=== PATIENT | female | born 1965 | race African-American/Black ===

== ENCOUNTER 2017-07-14 21:14 | Observation (INO) | payer OTHER ==
[2017-07-14] MEDS ORDERED: Nitroglycerin 0.4 MG TAB (25 Tab Bottle) ONE (21:17)
[2017-07-14] MEDS ORDERED: Nitroglycerin 2% Ointment 1 INCH/1 GM Packet ONE (21:31)
[2017-07-14 21:37] LABS: #Basophils 0.1 thou/uL (0.0-0.2); #Lymphocytes 3.4 thou/uL (1.20-3.40); #Monocytes 0.4 thou/uL (0.11-0.59); #Neutrophils 4.4 thou/uL (1.40-6.50); %Basophils 0.6 % (0.0-1.0); %Eosinophils 0.6 % (0.0-10.0); %Lymphocytes 40.9 % (21.0-51.0); %Monocytes 4.8 % (0.0-10.0); Hematocrit 40.1 % (36.0-47.0); Mean Platelet Volume 6.5 fL (7.4-10.4); Red Blood Cell (RBC) Count 4.49 mill/uL (4.20-5.40); White Blood Cell (WBC) Count 8.4 thou/uL (4.8-10.8)
--- NOTE | 2017-07-14 21:50 | RAD ---
PORTABLE CHEST: 07/14/17 HISTORY: Chest pain. Heart size is within normal limits. The aorta is mildly tortuous. The lungs are clear. of infiltrate s. IMPRESSION: No active intrathoracic disease. POS: [facility]
[2017-07-14] MEDS ORDERED: Ketorolac Tromethamine 30 MG/ML VIAL ONE (21:53)
[2017-07-14 22:03] LABS: Troponin I Less than 0.010 ng/mL (< 0.028)
[2017-07-14 22:48] LABS: Chloride 105 mmol/L (98-107); Magnesium 1.8 mg/dL (1.6-2.6)
[2017-07-14 22:49] LABS: Calcium 8.9 mg/dL (7.8-10.44)
[2017-07-14 22:50] LABS: Protein, Total 7.4 g/dL (6.0-8.3)
[2017-07-14 22:51] LABS: Anion Gap 12 mmol/L (10-20); Bilirubin, Total 0.3 mg/dL (0.2-1.2); Carbon Dioxide 26 mmol/L (22-29)
[2017-07-14 22:52] LABS: Alkaline Phosphatase 66 U/L (40-150)
[2017-07-14 22:53] LABS: Calc. Creatinine Clearance 0 mL/min (70-130); Estimated GFR-MDRD Greater than 90
[2017-07-14 22:54] LABS: BUN (Urea Nitrogen) 13 mg/dL (7.0-18.7)
[2017-07-14 22:55] LABS: ALT (SGPT) 10 U/L (8-55); AST (SGOT) 16 U/L (5-34); Lipase 12 U/L (8-78)
[2017-07-14 22:56] LABS: CK (CPK) 254 U/L (29-168)
[2017-07-14] MEDS ORDERED: Acetaminophen 325 MG TAB ONE (23:59)
[2017-07-15] MEDS ORDERED: Ondansetron ODT 4 MG TAB PO PRN (00:15)
[2017-07-15] MEDS ORDERED: HYDROcodone/Acetaminophen 5/325 mg Tablet PO PRN (00:15)
[2017-07-15] MEDS ORDERED: Acetaminophen 325 MG TAB PO PRN (00:15)
[2017-07-15] MEDS ORDERED: HYDROcodone/Acetaminophen 10/325 mg Tablet PO PRN (00:15)
[2017-07-15] MEDS ORDERED: Metoprolol Tartrate 25 MG TAB PO SCH (00:30)
[2017-07-15 01:15] LABS: Troponin I Less than 0.010 ng/mL (< 0.028)
[2017-07-15 02:10] VITALS: BMI 38.2
[2017-07-15] MEDS ORDERED: Regadenoson 0.4 MG/5 ML SYRINGE ONE ×2 (03:28→15:11)
[2017-07-15 04:20] LABS: #Basophils 0.1 thou/uL (0.0-0.2); #Eosinphils 0.1 thou/uL (0.0-0.7); #Lymphocytes 3.7 thou/uL (1.20-3.40); #Monocytes 0.5 thou/uL (0.11-0.59); %Basophils 1.2 % (0.0-1.0); %Eosinophils 0.8 % (0.0-10.0); %Lymphocytes 44.5 % (21.0-51.0); %Monocytes 6.1 % (0.0-10.0); Hematocrit 36.4 % (36.0-47.0); Mean Platelet Volume 6.1 fL (7.4-10.4); Red Blood Cell (RBC) Count 4.07 mill/uL (4.20-5.40); White Blood Cell (WBC) Count 8.4 thou/uL (4.8-10.8)
[2017-07-15 04:31] LABS: Anion Gap 11 mmol/L (10-20); BUN (Urea Nitrogen) 12 mg/dL (7.0-18.7); Calc. Creatinine Clearance 133 mL/min (70-130); Calcium 8.8 mg/dL (7.8-10.44); Carbon Dioxide 29 mmol/L (22-29); Chloride 104 mmol/L (98-107); Estimated GFR-MDRD Greater than 90
[2017-07-15] MEDS ORDERED: Nitroglycerin 2% Ointment 1 INCH/1 GM Packet TOP SCH (06:00)
--- NOTE | 2017-07-15 06:41 | HP ---
PRIMARY CARE PHYSICIAN: Dr. Snell. CHIEF COMPLAINT: She is complaining of chest pain. HISTORY OF PRESENT ILLNESS: Ms. 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 The patient was in normal state of health u ntil today around 04:00. She was about to go to work and developed chest pain in the mid sternum ar ea and that later radiated to the left shoulder and into her back. She has been short of breath due to increased pain with deep breathing. She took 325 mg of aspirin. Initial EKG was unremarkable; however, her pain continued and they decided to evaluate here in the emergency department. Workup here has been unremarkable; however, given the past history of hypertension that seems to be not completely accurate, the patient is being placed in observation for workup. No nausea or vomiting, no diarrhea or constipation, no sweats, no diaphoresis or hematuria, dysuria. PAST MEDICAL HISTORY: 1. Attention deficit disorder. 2. History of DVT, she thinks back in 1983. 3. Hypertension: Her primary care doctor ruled it the white coat syndrome and she has not been on medications for over a year. PAST SURGICAL HISTORY: 1. Bilateral tubal ligation. 2. Cholecystectomy, remotely. 3. Hysterectomy, partial. 4. Tonsillectomy as a child. HOME MEDICATIONS: Vyvanse 60 mg p.o. daily. She takes only when she goes to class. She has had no ne since of last week. She is not currently on any blood pressure medicines, but did take HCTZ for a period of time, but the last time was little over a year ago. ALLERGIES: To COMPAZINE. FAMILY HISTORY: Significant for her mom who had a heart attack at age 55. She is still alive at ag e 67, also has hypertension and history of blood clots. She has a sister and a brother with a histo ry of blood clots. SOCIAL HISTORY: Negative for habits x3. She has worked here in the emergency department. REVIEW OF SYSTEMS: A 10-point review of systems was performed, negative for all other systems excep t as stated as per HPI. Advance directive were discussed with the patient. She does wish to be a full code. PHYSICAL EXAMINATION: VITAL SIGNS: Temperature 98.8, pulse 90, blood pressure 119/87, respiratory rate 20, O2 sat 96% on room air. GENERAL: She is awake. She is alert. She is oriented x3. She is a well-developed, well-nourished -[place] female who appears to be in no distress. HEENT: Normocephalic, atraumatic. Pupils equal, round and reactive to light bilaterally, mucous me mbrane moist. There are no visible lesions. No thrush. NECK: Supple, without lymphadenopathy, no JVD, no thyromegaly. LUNGS: Clear to auscultation bilaterally without wheezes, rales or rhonchi. She has good air movem ent. Symmetrical chest excursion. CARDIOVASCULAR: Normal S1 and S2, no S3 or S4. No audible murmurs. PMI is normal size and nondisp laced. ABDOMEN: Soft, it is nontender, nondistended, no masses, no organomegaly and no rebound, rigidity o r guarding. EXTREMITIES: No cyanosis, no clubbing, no edema, 2+ peripheral pulse in the dorsalis pedis, posteri or tibial, and radial arteries. SKIN: Warm, moist, and well perfused. She has no rashes, no lesions. MUSCULOSKELETAL: Exam is normal to inspection. She has no inflamed joints. No increased temperatu re and no palpable joint effusions. NEUROLOGIC: Cranial nerves II through XII are grossly intact. She has normal speech, normal streng th 5/5 in all 4 extremities and no focal neurologic deficits. LABORATORY DATA AND X-RAY FINDINGS: Chemistry showed a CMP that was completely within normal limits . CK is mildly elevated at 254, CK-MB is 2.2 and troponin I was less than 0.010. BNP was less than 10. Total protein was 7.4, albumin is a little bit low at 3.4, globulin of 4.0. Lipase was normal at 12. CBC was completely within normal limits. Hemoglobin of 13.4, hematocrit of 40.1, platelets 318,000. D-dimer was normal at 0.43. Chest x-ray showed no acute cardiopulmonary disease. EKG sh owed normal sinus rhythm and no ST-T changes. ASSESSMENT AND PLAN: 1. Chest pain: On my opinion, low risk. The patient has no risk factors, not hypertensive. She h as been off of her Vyvanse for days. She had negative biomarkers and normal EKG. We will place her on observation, she will get metoprolol, nitro paste, continuous oxygen, and daily aspirin. We abby l get serial cardiac biomarkers and ask Cardiology to evaluate her. 2. History of attention deficit disorder: Aric, currently on hold. 3. History of deep venous thrombosis: Place her on deep venous thrombosis prophylaxis with Lovenox . 4. Place her on Pepcid 20 mg b.i.d. for gastrointestinal prophylaxis.
[2017-07-15] MEDS: Aspirin 325 MG TAB PO SCH (08:14)
[2017-07-15] MEDS: Enoxaparin Sodium 40 MG/0.4 ML SYRINGE SC SCH (08:15)
[2017-07-15] MEDS: Morphine 2 MG/ML SYRINGE SLOW IVP PRN ×2 (08:17→12:23)
[2017-07-15 08:38] LABS: Troponin I Less than 0.010 ng/mL (< 0.028)
[2017-07-15] MEDS ORDERED: Famotidine 20 MG TAB PO SCH (09:00)
--- NOTE | 2017-07-15 09:24 | PDOC.PN ---
- Subjective Encounter Start Date: 07/15/17 Encounter Start Time: 07:00 Subjective: has chest pain on deep breathing, no palp -: some sob -: no fever, cough - Objective MAR Reviewed: Yes Vital Signs & Weight: Vital Signs (12 hours) Temp Pulse Resp BP BP Pulse Ox 07/15/17 07:30 97.8 F 69 18 07/15/17 07:24 97.9 F 77 16 108/68 94 L 07/15/17 03:51 97.8 F 69 18 117/77 95 Weight Weight 216 lb 4.8 oz I&O: 07/14/17 07/15/17 07/16/17 06:59 06:59 06:59 Intake Total 240 1 Output Total 800 Balance -560 1 Result Diagrams: 07/15/17 03:52 07/15/17 03:52 Phys Exam - Physical Examination HEENT: PERRLA, moist MMs Neck: no JVD, supple Respiratory: no rales rhonchi+ Cardiovascular: RRR, no significant murmur Gastrointestinal: soft, non-tender, positive bowel sounds Musculoskeletal: no edema, pulses present Neurological: non-focal, moves all 4 limbs Psychiatric: A&O x 3 Dx/Plan (1) Chest pain Code(s): R07.9 - CHEST PAIN, UNSPECIFIED Status: Acute Qualifiers: Chest pain type: chest pain on breathing Qualified Code(s): R07.1 - Chest pain on breathing; R07.81 - Pleurodynia (2) HTN (hypertension) Code(s): I10 - ESSENTIAL (PRIMARY) HYPERTENSION Status: Chronic Qualifiers: Hypertension type: essential hypertension Qualified Code(s): I10 - Essential (primary) hypertension Comment: mild and under control (3) Obesity (BMI 30-39.9) Code(s): E66.9 - OBESITY, UNSPECIFIED Status: Chronic - Plan has prior h/o dvt, will obtain CTA chest -: stress test, no prior -: trop x2 is -ve -: morphine, alb nebs prn * . Review of Systems - Medications/Allergies Allergies/Adverse Reactions: Allergies Allergy/AdvReac Type Severity Reaction Status Date / Time prochlorperazine Allergy Verified 07/15/17 01:09 [From Compazine] Medications: Current Medications Acetaminophen (Tylenol) 650 mg PO Q4H PRN PRN Reason: Headache/Fever or Pain Hydrocodone Bitart/Acetaminophen ([place] 10/325) 1 tab PO Q4H PRN PRN Reason: Severe Pain (7-10) Hydrocodone Bitart/Acetaminophen ([place] 5/325) 1 tab PO Q4H PRN PRN Reason: Moderate Pain (4-6) Last Admin: 07/15/17 04:15 Dose: 1 tab Albuterol Sulfate (Albuterol Sulfate) 1.25 mg NEB [id number] [facility] Aspirin (Aspirin) 325 mg PO DAILY [facility] Last Admin: 07/15/17 08:14 Dose: 325 mg Enoxaparin Sodium (Lovenox) 40 mg SC 0900 [facility] Last Admin: 07/15/17 08:15 Dose: 40 mg Famotidine (Pepcid) 20 mg PO BID [facility] Last Admin: 07/15/17 08:14 Dose: 20 mg Metoprolol Tartrate (Lopressor) 25 mg PO BID [facility] Morphine Sulfate (Morphine Sulfate) 2 mg SLOW IVP Q4H PRN PRN Reason: Chest Pain/BP Elevations Last Admin: 07/15/17 08:17 Dose: 2 mg Ondansetron HCl (Zofran Odt) 4 mg PO Q6H PRN PRN Reason: Nausea/Vomiting
[2017-07-15] MEDS: Metoprolol Tartrate 25 MG TAB PO SCH ×2 (13:33→20:36)
[2017-07-15] MEDS ORDERED: ISOVUE-370 76%-LOCM 1 ML ONE (14:38)
--- NOTE | 2017-07-15 15:09 | CON ---
DATE OF CONSULTATION: 07/15/2017 CARDIOLOGY CONSULTATION REASON FOR CONSULTATION: Chest pain. HISTORY OF PRESENT ILLNESS: Mrs. 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 She started having chest pain yesterday evening around 4: 00 a.m. The pain would not go away, midsternally radiated the left arm and back, so she was placed in the room. Blood work was done and EKGs were done and admitted for observation for rule out. She continues to have pain. She has had pain, only the morphine makes it better. She feels a little b it worse pain when she takes a deep breath. PAST MEDICAL HISTORY: 1. Attention deficit hyperactivity disorder. 2. History of DVTs in 1983. 3. Hypertension. PAST SURGICAL HISTORY: 1. Bilateral tubal ligation. 2. Cholecystectomy. 3. Hysterectomy. 4. Tonsillectomy. OUTPATIENT MEDICATIONS: 1. Vyvanse 60 mg a day. She only takes it when she needs to, when she is going to class. 2. No blood pressure medication. She did take hydrochlorothiazide for sometime, but blood pressure went too low, so it was suspected white coat hypertension. ALLERGIES: COMPAZINE makes her feel drowsy. FAMILY HISTORY: Mother had a heart attack at 55. She has hypertension. Sister and brother with bl ood clots in the past. SOCIAL HISTORY: No alcohol, tobacco or drugs. REVIEW OF SYSTEMS: A 12-point review of systems was done and is all negative unless stated in the h istory of present illness PHYSICAL EXAMINATION: VITAL SIGNS: Temperature 97.7, pulse 69, respiratory rate 18, satting 96% on room air, blood pressu re 132/78. GENERAL: Awake, alert, oriented x3, in no distress. HEENT: Normocephalic, atraumatic. NECK: Supple. LUNGS: Clear. CARDIOVASCULAR: S1, S2, no S3 or S4, no murmurs or rubs. ABDOMEN: Soft, positive bowel sounds. EXTREMITIES: No edema. SKIN: Warm and dry. LABORATORY WORK: Reviewed. It shows a CBC is unremarkable except for hemoglobin of 13, down to 11 this morning. Coags: D-dimer was unremarkable. Chemistry was unremarkable except for a CK of 254, but CK-MBs were normal. Troponins were undetectable. BNP was undetectable. Albumin of 3.4. EKG shows sinus rhythm with no ischemic changes. ASSESSMENT AND PLAN: 1. Chest pain: Atypical. We will further risk stratify with the stress test. We will have furthe r recommendations per results of the myocardial perfusion imaging. 2. Hypertension: Blood pressure is normal without any blood pressure medication, most likely white coat hypertension. Thank you for letting us participate in the care of your patient. We will follow.
[2017-07-15] MEDS ORDERED: Mag-Al Plus 1200 MG/1200 MG/120 MG/30 ML UDCUP PO PRN (15:26)
--- NOTE | 2017-07-15 15:26 | CT ---
CTA CHEST WITH CONTRAST: HISTORY: Chest pain. Evaluate for embolism. Shortness of breath. COMPARISON: Chest 1 view prior day. TECHNIQUE: CT angiogram chest after intravenous administration of contrast Three-D rendering provided. FINDINGS: Heart rate is unremarkable. Pulmonary trunk size is normal. Aortic size is normal. No aortic dilatation. No proximal segmental pulmonary arterial filling defect. The heart size is normal. No pericardial effusion. Mild atelectatic changes right lower lobe. No suspicious mass, consolidation, pneumothorax, or effu cecy. Distal thoracic aorta is mildly tortuous. No adenopathy of the chest. Upper abdomen is unremarkable. Prior cholecystectomy. IMPRESSION: 1. No segmental pulmonary arterial filling defect. 2. No acute abnormality in the chest. 3. Possible intrapancreatic splenule versus loss of interlobular fat at the pancreatic tail versus a mass. Followup pancreatic protocol CT or MRI is recommended. This is seen on series image 94. T his measures 3.4 x 2.1 cm. CODE: T POS: [facility]
[2017-07-15] MEDS ORDERED: Ondansetron HCl/PF 4 MG/2 ML Vial IVP PRN (15:28)
[2017-07-15] MEDS ORDERED: Ketorolac Tromethamine 30 MG/ML VIAL IVP PRN (15:58)
[2017-07-15] MEDS: Albuterol Sulfate 1.25 MG/3 ML NEB NEB SCH ×2 (16:18→23:01)
[2017-07-15 16:43] LABS: Troponin I Less than 0.010 ng/mL (< 0.028)
[2017-07-15] MEDS: Pantoprazole 40 MG VIAL IVP SCH (20:37)
[2017-07-16] MEDS: Albuterol Sulfate 1.25 MG/3 ML NEB NEB SCH ×2 (08:17→15:51)
--- NOTE | 2017-07-16 09:55 | PDOC.PN ---
- Subjective Encounter Start Date: 07/16/17 Encounter Start Time: 07:15 Subjective: no chest pain now or sob -: feels better - Objective MAR Reviewed: Yes Vital Signs & Weight: Vital Signs (12 hours) Temp Pulse Resp BP BP Pulse Ox 07/16/17 08:22 97 07/16/17 08:17 70 20 97 07/16/17 07:20 98.5 F 73 18 111/72 94 L 07/16/17 04:23 98.7 F 69 16 104/57 L 94 L 07/15/17 23:02 99 07/15/17 23:01 74 15 99 Weight Weight 216 lb 1.6 oz I&O: 07/15/17 07/16/17 07/17/17 06:59 06:59 06:59 Intake Total 240 1262 Output Total 800 1250 Balance -560 12 Result Diagrams: 07/15/17 03:52 07/15/17 03:52 Phys Exam - Physical Examination HEENT: PERRLA, moist MMs Neck: no JVD, supple Respiratory: no wheezing, no rales Cardiovascular: RRR, no significant murmur Gastrointestinal: soft, non-tender, positive bowel sounds Musculoskeletal: no edema, pulses present Neurological: non-focal, moves all 4 limbs Psychiatric: A&O x 3 Dx/Plan (1) Chest pain Code(s): R07.9 - CHEST PAIN, UNSPECIFIED Status: Acute Qualifiers: Chest pain type: chest pain on breathing Qualified Code(s): R07.1 - Chest pain on breathing; R07.81 - Pleurodynia (2) HTN (hypertension) Code(s): I10 - ESSENTIAL (PRIMARY) HYPERTENSION Status: Chronic Qualifiers: Hypertension type: essential hypertension Qualified Code(s): I10 - Essential (primary) hypertension Comment: mild and under control (3) Obesity (BMI 30-39.9) Code(s): E66.9 - OBESITY, UNSPECIFIED Status: Chronic - Plan await stress test results -: is feeling much better this morning -: will need outpt EGD in 4 weeks -: may dc home if stress test is -ve * . Review of Systems - Medications/Allergies Allergies/Adverse Reactions: Allergies Allergy/AdvReac Type Severity Reaction Status Date / Time prochlorperazine Allergy Verified 07/15/17 01:09 [From Compazine] Medications: Current Medications Acetaminophen (Tylenol) 650 mg PO Q4H PRN PRN Reason: Headache/Fever or Pain Hydrocodone Bitart/Acetaminophen ([place] 10/325) 1 tab PO Q4H PRN PRN Reason: Severe Pain (7-10) Hydrocodone Bitart/Acetaminophen ([place] 5/325) 1 tab PO Q4H PRN PRN Reason: Moderate Pain (4-6) Last Admin: 07/15/17 04:15 Dose: 1 tab Al Hydroxide/Mg Hydroxide (Maalox Plus) 30 ml PO Q6H PRN PRN Reason: Heartburn or Indigestion Albuterol Sulfate (Albuterol Sulfate) 1.25 mg NEB [id number] [facility] Last Admin: 07/16/17 08:17 Dose: 1.25 mg Aspirin (Aspirin) 325 mg PO DAILY [facility] Last Admin: 07/15/17 08:14 Dose: 325 mg Enoxaparin Sodium (Lovenox) 40 mg SC 0900 [facility] Last Admin: 07/15/17 08:15 Dose: 40 mg Ketorolac Tromethamine (Toradol) 15 mg IVP Q6H PRN PRN Reason: Pain Stop: 07/20/17 15:59 Last Admin: 07/15/17 16:32 Dose: 15 mg Metoprolol Tartrate (Lopressor) 25 mg PO BID [facility] Last Admin: 07/15/17 20:36 Dose: 25 mg Ondansetron HCl (Zofran Odt) 4 mg PO Q6H PRN PRN Reason: Nausea/Vomiting Last Admin: 07/15/17 12:22 Dose: 4 mg Ondansetron HCl (Zofran) 4 mg IVP Q6H PRN PRN Reason: Nausea/Vomiting Pantoprazole Sodium (Protonix) 40 mg IVP Q12HR [facility] Last Admin: 07/15/17 20:37 Dose: 40 mg
[2017-07-16] MEDS: Enoxaparin Sodium 40 MG/0.4 ML SYRINGE SC SCH (10:48)
[2017-07-16] MEDS: Metoprolol Tartrate 25 MG TAB PO SCH (10:48)
[2017-07-16] MEDS: Aspirin 325 MG TAB PO SCH (10:48)
[2017-07-16] MEDS: Pantoprazole 40 MG VIAL IVP SCH (10:49)
--- NOTE | 2017-07-16 11:52 | NM ---
CARDIAC SPECT: CLINICAL HISTORY: 51-year-old female with chest pain, hypertension, family history of coronary artery disease. TECHNIQUE: A myocardial perfusion scan was performed using the single isotope two day protocol with 30 mCi tech netium-99m sestamibi injected intravenously for both stress and rest images. Pharmacologic stress wi th Lexiscan was monitored and interpreted by Dr. Degroot. FINDINGS: Homogeneous tracer distribution is seen in the myocardial segments on the rest images. There is a sm all area of mildly decreased tracer localization in the distal anteroseptal wall on the stress image s. GATED SPECT LVEF: 63%. WALL MOTION EXAM: Normal. IMPRESSION: Mild distal anteroseptal wall ischemia with complete reversibility. POS: [facility]
[2017-07-16] MEDS ORDERED: Nitroglycerin 100MG/250ML BOT 250 ML ONE (14:07)
[2017-07-16] MEDS ORDERED: Heparin 10,000 UNITS/1 ML VIAL ONE (14:07)
[2017-07-16] MEDS ORDERED: Midazolam HCl 2 mg/2 ml Vial ONE (14:09)
[2017-07-16] MEDS ORDERED: Fentanyl 100 MCG/2 ML VIAL ONE (14:09)
[2017-07-16 14:31] LABS: Bilirubin Negative (Negative); Blood, Urine Moderate (Negative); Glucose, Urine (Dipstick) Negative (Negative); Ketone, Urine Negative (Negative); Nitrite Negative (Negative); Protein, Urine (Dipstick) Negative (Neg-Trace); Urobilinogen 0.2 mg/dL (0.2-1.0)
[2017-07-16] MEDS ORDERED: traMADol HCl 50 MG TAB PO PRN (14:32)
[2017-07-16] MEDS ORDERED: Acetaminophen/Codeine 30-300mg Tablet PO PRN (14:32)
[2017-07-16 14:33] LABS: Bacteria/HPF 2+ HPF (None Seen); Hyaline Casts/LPF 0-3 HYALINE CAST LPF (0-3 Hyaline); WBC/HPF 0-3 HPF (0-3)
[2017-07-16] MEDS ORDERED: Sodium Chloride 0.9% 1,000 ML IV SCH (14:45)
[2017-07-16] MEDS ORDERED: Sodium Chloride 0.9% 200 ML IV SCH (14:45)
[2017-07-16 14:49] LABS: Yeast-All Forms None Seen HPF (None Seen)
[2017-07-16 15:40] VITALS: BP 107/70; TEMP 97.5
--- NOTE | 2017-07-17 01:56 | DIS ---
DATE OF ADMISSION: 07/14/2017 DATE OF DISCHARGE: 07/16/2017 DISCHARGE DISPOSITION: To home. PRIMARY DISCHARGE DIAGNOSIS: Chest pain, which is noncardiac. SECONDARY DISCHARGE DIAGNOSES: Hypertension, likely white coat hypertension, and obesity. PROCEDURES DONE DURING HOSPITALIZATION: The patient has had CT angio chest done , which showed no evidence of PE. There was no acute abnormality seen in the chest. There was nuclear stress test done showed mild distal anteroseptal wall ischemia with complete reversibility. Ejection fraction was 63% with normal wall motion. Patient has had cardiac catheterization done today by Dr. Degroot. Per verbal conversation with Dr. Degroot, the patient has no flow limiting disease. H and H were 11.9 and 36, platelet count 302. Total cholesterol 147, triglycerides 90, LDL 79, HDL 50. Albumin was 3.4. Troponin x3 was negative. DISCHARGE MEDICATION: Protonix 40 mg daily for another 30 days. ALLERGIES: PROCHLORPERAZINE. INPATIENT CONSULTS: Dr. Degroot for Cardiology. BRIEF COURSE DURING HOSPITALIZATION: The patient initially got admitted on the with complaints of chest pain radiating to the back. Three sets of troponin were negative. In view of patient's persistent pain radiating to the back, a CT angio chest was obtained, which was negative for PE. A 2-day nuclear stress test done showed mild distal anteroseptal wall ischemia with complete reversibility. She has had consultation with Dr. Degroot and patient has had cardiac catheterization done, which showed no flow limiting disease. Her left-sided chest pain radiating to the back has completely resolved at the time of discharge. She has been advised to continue Protonix 40 mg daily, and outpatient upper endoscopy will be arranged in the following 4 weeks. She is otherwise hemodynamically stable and will be shortly discharged home. Please see a face to face documentation on [facility] for the day of discharge. [facility]
== END 2017-07-16 18:30 | disposition home or self-care (01) ==
LOC: ERS 21:14 → 2SW 07-15 00:22
PROVIDERS: ADMIT Internal Medicine Infectious Disease; ATTEND Internal Medicine Infectious Disease
DX: R07.89 Other chest pain (principal); I10 Essential (primary) hypertension; F90.9 Attention-deficit hyperactivity disorder, unspecified type; E66.9 Obesity, unspecified; Z68.38 Body mass index [BMI] 38.0-38.9, adult; Z88.8 Allergy status to other drugs, medicaments and biological substances; Z79.899 Other long term (current) drug therapy; Z98.51 Tubal ligation status; Z90.710 Acquired absence of both cervix and uterus; Z90.49 Acquired absence of other specified parts of digestive tract; Z90.89 Acquired absence of other organs; Z82.49 Family history of ischemic heart disease and other diseases of the circulatory system
CPT/HCPCS: 36415; 71010; 71275; 78452; 80048; 80053; 80061; 81001; 82553; 83690; 83735; 83880; 84484; 85025; 85379; 93005; 93017; 93458; 94640; 94760; 96361; 96372; 96374; 96375; 96376; 99152; A9500; C1769; C9113; G0378; J1644; J1650; J1885; J2250; J2270; J2785; J3010; Q0162

== ENCOUNTER 2017-08-09 11:28 | Day surgery (SDC) | payer OTHER ==
[2017-08-08 13:33] VITALS: BMI 37.2
[2017-08-09] MEDS ORDERED: Propofol 200 MG/20 ML VIAL ONE (14:19)
--- NOTE | 2017-08-09 18:09 | OP ---
DATE OF SERVICE: 08/09/2017 TITLE OF PROCEDURE: Colonoscopy with snare polypectomy. PREOPERATIVE DIAGNOSIS: Average risk colon screening. POSTOPERATIVE DIAGNOSES: 1. Exam to cecum; good bowel preparation. 2. A 3 mm sessile polyp in the cecum, removed by cold snare technique. 3. A 2 mm diminutive sigmoid polyp, removed by cold snare technique. 4. Small internal hemorrhoids. 5. Otherwise normal colonoscopy. PROCEDURE IN DETAIL: Written informed consent was obtained. Upon completion of the EGD, the patient was repositioned for the colonoscopy. Total intravenous anesthesia was provided by Dr. Dash and associates. The patient was in the left lateral decubitus position. A digital rectal exam was perf ormed that was unremarkable. A Pentax video colonoscope was inserted through the anal canal and adva nced under direct visualization to the cecum. Position in the cecum was verified by clear identifica tion of the cecal strap and ileocecal valve. The quality of the bowel preparation was good. Each co kenney segment was examined carefully as the colonoscope was slowly withdrawn from the cecum. Vascular pattern and haustral folds appeared normal. In the cecum, a small 3 mm sessile polyp was identified. It was removed by cold snare technique with good hemostasis verified post-polypectomy. Another sma ller polyp in the sigmoid, approximately 2 mm in diameter, was removed by cold snare technique. The tissue was retrieved for histology. No other synchronous polyps were identified. In the rectum, a r etroflexed view demonstrated small internal hemorrhoids that were not actively bleeding. The colon w as decompressed as the colonoscope was removed from the patient. She was transferred to the day stay surgery area for post-procedure monitoring. There were no immediate complications. RECOMMENDATIONS: 1. Await pathology results. 2. Ask the patient to call me in 1 week for pathology results. 3. Will likely require a repeat colonoscopy in 5 years. 4. Follow up with Gastroenterology as needed.
--- NOTE | 2017-08-09 20:53 | OP ---
DATE OF PROCEDURE: 08/09/2017 TITLE OF PROCEDURE: Esophagogastroduodenoscopy with biopsy. PREOPERATIVE DIAGNOSES: 1. Suspected reflux. 2. Atypical chest pain with recent negative cardiac workup. POSTOPERATIVE DIAGNOSES: 1. Examination to second portion of duodenum. 2. Small 1 cm sliding hiatal hernia. 3. Saravia esophagitis at 36 cm, biopsied. 4. Normal stomach. 5. Normal duodenum. 6. No evidence of esophageal or gastric ulcers. PROCEDURE IN DETAIL: Written and informed consent was obtained. The patient was brought to the endo scopy suite. Total intravenous anesthesia was provided by Dr. Rico and associates. The patient was placed in the left lateral decubitus position. A bite block was inserted into the mouth. A Pen tax video diagnostic gastroscope was introduced into the oral cavity and the esophagus was easily int ubated. The gastroscope was advanced under direct visualization to the second portion of the duodenu m. Endoscopic findings revealed a small sliding 1 cm hiatal hernia. Mucosal changes consistent with a grade A esophagitis were also identified. Biopsies were obtained for histology. There was no jed dence of acute esophageal ulcer or erosions. The stomach was entered and carefully examined. This i ncluded a retroflexed view of the cardia and fundus which revealed the hiatal hernia. There is no er osive gastritis or gastric ulcer was identified. The duodenum from the bulb to the second portion wa s then inspected and appeared grossly normal. The stomach was decompressed as the endoscope was comp letely removed from the patient. She was then repositioned for the colonoscopy. RECOMMENDATIONS: 1. Await pathology results. 2. Ask the patient to call me in 1 week for pathology results. 3. Continue Protonix 40 mg daily. 4. Antireflux measures. 5. Would benefit from modest weight reduction of 20 pounds. 6. Follow up with GI as needed.
== END 2017-08-09 15:20 | disposition home or self-care (01) ==
LOC: SDC 11:28
PROVIDERS: ATTEND Internal Medicine Gastroenterology
PROC: 0DB38ZX Excision of Lower Esophagus, Via Natural or Artificial Opening Endoscopic, Diagnostic (ICD-10-PCS; principal; 2017-08-09)
PROC: 0DBN8ZX Excision of Sigmoid Colon, Via Natural or Artificial Opening Endoscopic, Diagnostic (ICD-10-PCS; principal; 2017-08-09)
PROC: 0DBH8ZX Excision of Cecum, Via Natural or Artificial Opening Endoscopic, Diagnostic (ICD-10-PCS; principal; 2017-08-09)
DX: K63.5 Polyp of colon (principal); K21.0 Gastro-esophageal reflux disease with esophagitis; K44.9 Diaphragmatic hernia without obstruction or gangrene; K64.8 Other hemorrhoids; R07.89 Other chest pain; Z88.8 Allergy status to other drugs, medicaments and biological substances; Z79.899 Other long term (current) drug therapy; Z90.49 Acquired absence of other specified parts of digestive tract; Z90.710 Acquired absence of both cervix and uterus; Z98.51 Tubal ligation status; Z98.891 History of uterine scar from previous surgery; Z98.890 Other specified postprocedural states
CPT/HCPCS: 88305; 88312; 88313; J2704

== ENCOUNTER 2017-09-04 14:16 | Emergency (ER) | payer OTHER ==
[~2017-09-04 14:16] MED LIST: Iopamidol 370 76% 100 ML VIAL ONE
[2017-09-04] MEDS ORDERED: Nitroglycerin 2% Ointment 1 INCH/1 GM Packet ONE (14:55)
[2017-09-04 15:08] LABS: #Basophils 0.1 thou/uL (0.0-0.2); #Lymphocytes 2.8 thou/uL (1.20-3.40); #Monocytes 0.4 thou/uL (0.11-0.59); #Neutrophils 4.2 thou/uL (1.40-6.50); %Basophils 1.3 % (0.0-1.0); %Eosinophils 0.4 % (0.0-10.0); %Lymphocytes 37.6 % (21.0-51.0); %Monocytes 4.6 % (0.0-10.0); Hematocrit 38.6 % (36.0-47.0); Red Blood Cell (RBC) Count 4.38 mill/uL (4.20-5.40); White Blood Cell (WBC) Count 7.6 thou/uL (4.8-10.8)
[2017-09-04 15:23] LABS: ALT (SGPT) 8 U/L (8-55); AST (SGOT) 19 U/L (5-34); Alkaline Phosphatase 72 U/L (40-150); Anion Gap 13 mmol/L (10-20); BUN (Urea Nitrogen) 15 mg/dL (7.0-18.7); Bilirubin, Total 0.4 mg/dL (0.2-1.2); Calc. Creatinine Clearance 0 mL/min (70-130); Calcium 9.3 mg/dL (7.8-10.44); Carbon Dioxide 26 mmol/L (22-29); Chloride 105 mmol/L (98-107); Estimated GFR-MDRD 82; Globulin 3.9 g/dL (2.4-3.5); Lipase 11 U/L (8-78); Protein, Total 7.6 g/dL (6.0-8.3)
[2017-09-04 15:24] LABS: Troponin I 0.015 ng/mL (< 0.028)
[2017-09-04] MEDS ORDERED: Acetaminophen 500 MG TAB ONE (15:33)
--- NOTE | 2017-09-04 15:33 | RAD ---
PORTABLE CHEST: History: Chest pain. Comparison: 07-14-17 FINDINGS: The lung de la fuente are clear. Heart and mediastinum are unremarkable. IMPRESSION: No acute abnormality. POS: [facility]
--- NOTE | 2017-09-04 16:51 | CT ---
EXAM: CT ANGIOGRAM OF THE CHEST 09/04/17 COMPARISON: 07/15/17 TECHNIQUE: CT angiogram of the chest is performed in the axial plane. Bilateral oblique, and coronal three dimen sional reformatted images submitted for interpretation. HISTORY: Chest pain. FINDINGS: No mediastinal mass, lymphadenopathy or hematoma. Heart size is within normal limits. No significant pericardial fluid. Descending thoracic aorta and abdominal aorta have a normal caliber. No periaortic fat stranding Gallbladder is surgically absent. With the exception of the pelvis, upper solid organs are unremarkab le. There is stable solid density mass adjacent to the tail of the pancreas, measuring 3.2 x 2.0 cm. There is adequate contrast opacification of the pulmonary arterial system to the level of segmental a rteries. No filling defects to suggest thromboembolism. Trachea and central bronchi are patent. There is a focal opacity in the lateral aspect of the left lo wer lobe measuring 0.7 x 1.6 cm. Focal area of atelectasis or infiltrate is favored. No additional ar eas of opacification. Trachea and central bronchi are patent. No pneumothorax or pleural effusion. There are no lytic or blastic lesions in the osseous structures. IMPRESSION: 1. No evidence of pulmonary artery embolism to the level of the segmental arteries. 2. Focal area of atelectasis or scar in the left lower lobe. 3. Mass-like density adjacent to the tail of the pancreas, unchanged from the prior exam. Pancre atic protocol CT or abdomen MRI is recommended. Exam can be performed on an nonemergent basis. POS: [facility]
[2017-09-04 18:40] LABS: Troponin I Less than 0.010 ng/mL (< 0.028)
== END 2017-09-04 19:04 | disposition home or self-care (01) ==
LOC: SCSER 14:16
DX: R07.89 Other chest pain (principal); K86.89 Other specified diseases of pancreas; F98.8 Other specified behavioral and emotional disorders with onset usually occurring in childhood and adolescence; Z79.82 Long term (current) use of aspirin; Z79.899 Other long term (current) drug therapy
CPT/HCPCS: 36415; 71010; 71275; 80053; 82553; 83690; 83880; 84484; 85025; 85379; 93005

== ENCOUNTER 2017-11-12 08:08 | Outpatient (CLI) | payer OTHER ==
[2017-11-12] MEDS ORDERED: ISOVUE-370 76%-LOCM 1 ML ONE (13:21)
== END 2017-11-12 08:09 | disposition home or self-care (01) ==
LOC: BICCT 08:08
PROVIDERS: ATTEND Surgery
DX: K86.9 Disease of pancreas, unspecified (principal)
CPT/HCPCS: 72193; 74170

== ENCOUNTER 2020-01-18 18:28 | Emergency (ER) | payer OTHER ==
--- NOTE | 2020-01-18 19:12 | RAD ---
Exam:4 views left knee HISTORY: Pain. Patient felt a pop. COMPARISON: None FINDINGS: No fracture, cortical irregularity or periosteal reaction. Preserved joint spaces. No joint effusion. IMPRESSION: No fracture. If there is concern for internal derangement, nonemergent MRI
[2020-01-18] MEDS ORDERED: HYDROcodone/Acetaminophen 5/325 mg Tablet ONE (19:28)
[2020-01-18] MEDS ORDERED: Ketorolac Tromethamine 30 MG/ML VIAL ONE (19:28)
== END 2020-01-18 20:05 | disposition home or self-care (01) ==
LOC: ERS 18:28
DX: S83.92XA Sprain of unspecified site of left knee, initial encounter (principal); I10 Essential (primary) hypertension; F98.8 Other specified behavioral and emotional disorders with onset usually occurring in childhood and adolescence; Z79.899 Other long term (current) drug therapy; X50.1XXA Overexertion from prolonged static or awkward postures, initial encounter
CPT/HCPCS: 96372; J1885

== ENCOUNTER 2020-10-04 14:45 | Inpatient (IN) | payer OTHER ==
[2020-10-04] MEDS ORDERED: Acetaminophen 500 MG TAB ONE (15:01)
[2020-10-04] MEDS ORDERED: cefTRIAXone\\ROCEPHIN 1 GM VIAL ONE (15:01)
--- NOTE | 2020-10-04 15:23 | RAD ---
Exam: Chest one view HISTORY:Dyspnea. Comparison: 09/04/2017 FINDINGS: Cardiac silhouette: Normal Aorta: Unremarkable Pulmonary vessels: Normal Costophrenic angles: Clear LUNGS: Scattered interstitial and alveolar opacities in the left lower lobe. Pneumothorax: None Osseous abnormalities: None IMPRESSION: Left lower lobe infiltrate. Correlate for pneumonia.
[2020-10-04 15:25] LABS: Hemoglobin 14.6 g/dL (12.0-16.0); Mean Corpuscular HGB CONC 33.9 g/dL (32.0-36.0); Mean Corpuscular Hemoglobin 29.1 pg (27.0-31.0); Mean Corpuscular Volume 85.6 fL (78.0-98.0); Platelet Count 270 thou/uL (130-400); RBC Distribution Width 13.2 % (11.5-14.5); Red Blood Cell (RBC) Count 5.02 mill/uL (4.20-5.40); White Blood Cell (WBC) Count 4.9 thou/uL (4.8-10.8)
[2020-10-04 15:27] LABS: Prothrombin Time 13.1 sec (12.0-14.7)
[2020-10-04 15:28] LABS: PTT 30.8 sec (22.9-36.1)
[2020-10-04 15:40] LABS: Band 7 % (5-11); Lymphocytes 61 % (21-51); MDiff Complete? YES; Monocytes 5 % (0-10); Myelocyte 1 % (0-0); Neutrophil 23 % (42-75); Platelet Morphology Comment Appears Adequate; RBC Morphology Normal; Reactive Lymphocytes 3 % (0-10)
[2020-10-04 15:41] LABS: ALT (SGPT) 7 U/L (8-55); AST (SGOT) 25 U/L (5-34); Albumin 3.8 g/dL (3.5-5.0); Alkaline Phosphatase 64 U/L (40-110); Anion Gap 14 mmol/L (10-20); BUN (Urea Nitrogen) 16 mg/dL (9.8-20.1); Bilirubin, Total 0.3 mg/dL (0.2-1.2); Calc. Creatinine Clearance 0 mL/min (70-130); Calcium 8.5 mg/dL (7.8-10.44); Carbon Dioxide 24 mmol/L (22-29); Chloride 99 mmol/L (98-107); Globulin 4.8 g/dL (2.4-3.5); Glucose 103 mg/dL (70-105); Potassium 3.2 mmol/L (3.5-5.1); Protein, Total 8.6 g/dL (6.0-8.3); Sodium 134 mmol/L (136-145)
[2020-10-04] MEDS ORDERED: Azithromycin 500 MG in Sodium Chloride 0.9% 250 ML 250 ML IVPB SCH (16:30)
--- NOTE | 2020-10-04 16:40 | CT ---
Exam: Head CT without contrast HISTORY: Weakness. COMPARISON: 06/02/2013 FINDINGS: Hemorrhage: No intraparenchymal hemorrhage or extra-axial hematoma. Brain parenchyma: Cortical gurrola-white matter differentiation is preserved. No mass effect or midline shift. Basilar cisterns are patent. Ventricular system: Ventricles and sulci are patent and symmetric. Calvarium: Intact. Sinuses and mastoid air cells: Adequate aeration. IMPRESSION: No acute intracranial process.
[2020-10-04 16:41] LABS: SARS-CoV-2 NAA Rapid Test DETECTED (NotDetected)
[2020-10-04] MEDS ORDERED: cefTRIAXone\\ROCEPHIN 1 GM in Sodium Chloride 0.9% 100 ML IVPB SCH (17:00)
[2020-10-04 17:06] LABS: Bacteria/HPF 4+ HPF (None Seen); Bilirubin Negative (Negative); Blood, Urine 1+ (Negative); Clarity Clear (Clear); Glucose, Urine (Dipstick) Normal (Negative); Ketone, Urine Negative (Negative); Leukocyte Negative Leu/uL (Negative); Nitrite Negative (Negative); Protein, Urine (Dipstick) Negative (Neg-Trace); RBC/HPF 0-3 HPF (0-3); Specific Gravity, Urine 1.003 (1.002-1.036); Urobilinogen Normal mg/dL (Less than 2); WBC/HPF 0-3 HPF (0-3)
[2020-10-04] MEDS ORDERED: Ketorolac Tromethamine 30 MG/ML VIAL ONE (17:12)
[2020-10-04] MEDS ORDERED: Dexamethasone 10 MG/ML VIAL SLOW IVP SCH (17:15)
--- NOTE | 2020-10-04 17:28 | HP ---
CHIEF COMPLAINT: Headache and shortness of breath. HISTORY OF PRESENT ILLNESS: The patient is a 55-year-old female with past medical history of hypertension who presented to the ER with complaints of generalized body aches and headache over the last week. She subsequently developed fever, productive cough, and shortness of breath. 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 REVIEW OF SYSTEMS: Negative except as noted in HPI. PAST MEDICAL HISTORY: As noted above. PAST SURGICAL HISTORY: Includes: 1. Tubal ligation. 2. Cholecystectomy. 3. Hysterectomy. 4. Tonsillectomy. SOCIAL HISTORY: Denies smoking. Drinks socially. Denies illicit drug use. ALLERGIES: THE PATIENT IS ALLERGIC TO COMPAZINE. FAMILY HISTORY: Noncontributory for the current presentation. PHYSICAL EXAMINATION: GENERAL: The patient is alert and oriented. HEENT: Head, normocephalic and atraumatic. Extraocular muscles intact. NECK: Supple. CARDIOVASCULAR: Normal S1 and S2. Regular rate and rhythm. No murmurs, rubs, or gallops. RESPIRATORY: Auscultation of the lungs revealed crackles on the left side. NEUROLOGIC: Grossly unremarkable. PERTINENT DATA: Chest x-ray revealed left lower lobe infiltrate. Laboratory work was significant for elevated creatinine at 1.8, which is above her baseline. ASSESSMENT: 1. Left lower lobe pneumonia. 2. Acute kidney injury. 3. Hypertension. PLAN: The patient will be admitted to the hospital. We will start IV fluids and recheck her BMP in the morning. Start ceftriaxone and azithromycin for management of community-acquired pneumonia. Check COVID-[address] the patient in isolation until the results are available. Lovenox for DVT prophylaxis. Job ID: [id number]
[2020-10-04 19:29] VITALS: BMI 38.5
[2020-10-04] MEDS: Sodium Chloride 0.9% 1,000 ML IV SCH (22:11)
[2020-10-04] MEDS: Acetaminophen 325 MG TAB PO PRN (22:33)
[2020-10-05] MEDS: Acetaminophen 325 MG TAB PO PRN (06:37)
[2020-10-05 06:38] LABS: Hemoglobin 12.7 g/dL (12.0-16.0); Mean Corpuscular HGB CONC 31.5 g/dL (32.0-36.0); Mean Corpuscular Hemoglobin 27.6 pg (27.0-31.0); Mean Corpuscular Volume 87.8 fL (78.0-98.0); Mean Platelet Volume 6.9 fL (7.4-10.4); Platelet Count 214 thou/uL (130-400); RBC Distribution Width 13.3 % (11.5-14.5); Red Blood Cell (RBC) Count 4.58 mill/uL (4.20-5.40); White Blood Cell (WBC) Count 5.1 thou/uL (4.8-10.8)
[2020-10-05 06:57] LABS: Band 11 % (5-11); Eosinophils 1 % (0-10); Lymphocytes 66 % (21-51); MDiff Complete? YES; Monocytes 4 % (0-10); Neutrophil 16 % (42-75); Platelet Morphology Comment Appears Adequate; RBC Morphology Normal; Reactive Lymphocytes 2 % (0-10)
[2020-10-05 06:59] LABS: Anion Gap 11 mmol/L (10-20); BUN (Urea Nitrogen) 11 mg/dL (9.8-20.1); Calc. Creatinine Clearance 114 mL/min (70-130); Calcium 7.5 mg/dL (7.8-10.44); Carbon Dioxide 24 mmol/L (22-29); Chloride 109 mmol/L (98-107); Glucose 94 mg/dL (70-105); Potassium 3.7 mmol/L (3.5-5.1); Sodium 140 mmol/L (136-145)
[2020-10-05] MEDS: Enoxaparin Sodium 40 MG/0.4 ML SYRINGE SC SCH (08:50)
[2020-10-05] MEDS: Dexamethasone 4 mg/ml Vial SLOW IVP SCH (08:50)
[2020-10-05] MEDS ORDERED: Azithromycin 500 MG in Sodium Chloride 0.9% 250 ML 250 ML IVPB SCH (09:00)
[2020-10-05] MEDS: Sodium Chloride 0.9% 1,000 ML IV SCH ×2 (09:09→09:10)
[2020-10-05] MEDS ORDERED: Acetaminophen/Codeine 30-300mg Tablet PO PRN (09:15)
[2020-10-05] MEDS ORDERED: HYDROcodone/Acetaminophen 5/325 mg Tablet PO PRN (09:15)
[2020-10-05] MEDS ORDERED: traMADol HCl 50 MG TAB PO PRN (09:15)
[2020-10-05] MEDS ORDERED: Senokot S 8.6-50 MG TAB PO PRN (09:16)
[2020-10-05] MEDS ORDERED: Calcium Carbonate 500 MG ChewTAB PO PRN (09:16)
[2020-10-05] MEDS ORDERED: Albuterol 200 PUFF (6.7GM INHALER) INH PRN (09:29)
[2020-10-05] MEDS: Albuterol 200 PUFF (6.7GM INHALER) INH SCH ×4 (12:10→22:42)
[2020-10-05] MEDS ORDERED: REMDESIVIR (EUA) 200 MG in Sodium Chloride 0.9% 250 ML 210 ML IV SCH (14:00)
--- NOTE | 2020-10-05 14:17 | CON ---
DATE OF CONSULTATION: 10/05/2020 REASON FOR CONSULTATION: COVID pneumonia. 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 She was a little bit hypotensive with a pulse 125, temperature 100.2, O2 saturations were 95% on room air. The respiratory examination was described as clear breath sounds on admission. Other elements of the examination were normal. Other findings included a white cell count 4.9, hemoglobin 14.6, platelets 270, 23% neutrophils, and 61% lymphocytes. INR was 1.0. Sodium 134, creatinine 1.8 and then 0.89. Transaminases and alkaline phosphatase normal. CRP 7.42. Albumin 3.8. Her urinalysis with 0 to 3 wbc's. She had a SARS-CoV-2 RT PCR positive on 10/04. Chest x-ray with left lower lobe infiltrate and scattered interstitial and alveolar opacities. Right now, she is in bed in the 4th floor. She is awake and alert. Does not appear in distress. She has O2 per nasal cannula on 2 L, saturating at 97%, she was 91% on nasal cannula earlier, 93 on room air. She was having some headaches, but not any more. No sore throat. Mild cough. No chest pain. No back pain. No abdominal pain or diarrhea. No genitourinary symptoms. She has not lost her taste or sense of smell. No neurological symptoms. PAST MEDICAL HISTORY: Hypertension. SURGICAL HISTORY: 1. Tubal ligation. 2. Cholecystectomy. 3. Hysterectomy. 4. Tonsillectomy. SOCIAL HISTORY: Never smoker. Drinks occasionally. No drug use. 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 ALLERGIES: COMPAZINE. CURRENT MEDICATIONS: She initially was placed on: 1. Azithromycin. 2. Rocephin. Now, she is on: 1. Remdesivir. 2. Decadron. 3. Enoxaparin prophylaxis. PHYSICAL EXAMINATION: VITAL SIGNS: Temperature normal, blood pressure 115/78, heart rate 85, respirations 20, and O2 saturation 96 on 2 L nasal cannula. SKIN: Normal. Peripheral IV access. Voiding in the toilet. No lymphadenopathy. HEENT: Ocular movements are conjugate. Oral cavity with a few petechiae in the soft palate. Dental structures appear normal. NECK: Supple. LUNGS: Inspiratory crackles particularly on the left lower base, few ones on the right side too. No wheezing. HEART: S1 and S2. Regular rate. No S3 or S4. ABDOMEN: Soft, not distended or tender. No ascites. No bladder distention. EXTREMITIES: No joint inflammatory activity. NEUROLOGIC: Nonfocal including cognitive function. LABORATORY DATA: Followup labs: White cell count 5.1, hemoglobin 12.7, platelets 214, and 66% lymphocytes. ASSESSMENT: Hypertension with COVID-10 pneumonia with moderate manifestations, requiring O2 supplementation. She has lymphocytosis instead of lymphocytopenia, which makes me wonder getting the vaccine more or less at same time she got infected, may have modified the course of illness. I think she is eligible for remdesivir and continuing Decadron. Discontinue antimicrobials otherwise. Monitor markers every other day. Job ID: [id number] [facility]
[2020-10-05] MEDS: Aspirin/APAP/Caffeine Tab (Excedrin Migraine) PO PRN ×2 (14:40→21:36)
[2020-10-05 19:38] LABS: SARS-CoV-2 IgG Ab Non-Reactive (NonReactive); SARS-CoV-2 IgG Index 0.29 S/CO (< 1.40)
[2020-10-06] MEDS: Ondansetron PF 4 MG/2 ML Vial IVP PRN (02:28)
[2020-10-06] MEDS: Albuterol 200 PUFF (6.7GM INHALER) INH SCH ×6 (02:39→22:48)
[2020-10-06 07:12] LABS: #Basophils 0.1 thou/uL (0.0-0.2); #Lymphocytes 2.5 thou/uL (1.20-3.40); #Monocytes 0.3 thou/uL (0.11-0.59); #Neutrophils 2.9 thou/uL (1.40-6.50); %Basophils 0.9 % (0.0-1.0); %Eosinophils 0.1 % (0.0-10.0); %Lymphocytes 42.8 % (21.0-51.0); %Monocytes 5.4 % (0.0-10.0); %Neutrophils 50.9 % (42.0-75.0); Hemoglobin 12.3 g/dL (12.0-16.0); Mean Corpuscular HGB CONC 32.3 g/dL (32.0-36.0); Mean Corpuscular Hemoglobin 28.4 pg (27.0-31.0); Mean Corpuscular Volume 87.9 fL (78.0-98.0); Mean Platelet Volume 7.1 fL (7.4-10.4); Platelet Count 217 thou/uL (130-400); Red Blood Cell (RBC) Count 4.31 mill/uL (4.20-5.40); White Blood Cell (WBC) Count 5.8 thou/uL (4.8-10.8)
[2020-10-06 07:24] LABS: ALT (SGPT) 8 U/L (8-55); AST (SGOT) 27 U/L (5-34); Albumin 3.2 g/dL (3.5-5.0); Alkaline Phosphatase 52 U/L (40-110); Anion Gap 13 mmol/L (10-20); BUN (Urea Nitrogen) 7 mg/dL (9.8-20.1); Bilirubin, Total Less than 0.2 mg/dL (0.2-1.2); CRP (Inflammatory) 3.81 mg/dL (= or < 0.5); Calc. Creatinine Clearance 132 mL/min (70-130); Calcium 8.2 mg/dL (7.8-10.44); Carbon Dioxide 24 mmol/L (22-29); Chloride 110 mmol/L (98-107); Globulin 3.8 g/dL (2.4-3.5); Glucose 93 mg/dL (70-105); Magnesium 1.7 mg/dL (1.6-2.6); Phosphorus 2.5 mg/dL (2.3-4.7); Potassium 3.7 mmol/L (3.5-5.1); Sodium 143 mmol/L (136-145)
[2020-10-06] MEDS: Enoxaparin Sodium 40 MG/0.4 ML SYRINGE SC SCH (09:07)
[2020-10-06] MEDS: Dexamethasone 4 mg/ml Vial SLOW IVP SCH (09:07)
[2020-10-06] MEDS ORDERED: Magnesium 2 GM/50 ML 2 GM in Premix Bag 1 BAG IVPB SCH (13:30)
[2020-10-06] MEDS: REMDESIVIR (EUA) 100 MG in Sodium Chloride 0.9% 250 ML 230 ML IV SCH (13:41)
--- NOTE | 2020-10-06 13:44 | PRG ---
DATE OF SERVICE: 10/06/2020 SUBJECTIVE: Feeling better. She is little bit nauseated. She removed her nasal cannula. She is saturating now 97% on room air. She probably does not need nasal cannula O2 anymore. No coughing. No abdominal pain, diarrhea. No genitourinary symptoms. OBJECTIVE: LUNGS: Faint basilar crackles on the left side. No wheezing. HEART: S1, S2. Regular rate. ABDOMEN: Soft. Not distended. NEURO: Nonfocal. LABORATORY DATA: White cell count is 5.8, although the findings on CBC normal. Chemistry, ferritin normal. CRP is down to 3.81. ASSESSMENT AND DISCUSSION: Hypertension, obesity with moderate COVID pneumonia. IgG for SARS-CoV-2 was below the threshold for positivity, so she is probably on the way up in the next two days. I would expect her to have positive IgG titers for SARS-CoV-2. In terms of discharge planning, it will in another 2 days should be able to go home to finish her course of Decadron and we could curtail her remdesivir then. Job ID: [id number]
--- NOTE | 2020-10-06 19:10 | PDOC.HOSPP ---
- Subjective Encounter Date: 10/06/20 Encounter Time: 12:30 Subjective: Patient evaluated for respiratory failure due to COVID-19 pneumonia. Started on remdesivir yesterday. Shortness of breath improving. Denies any nausea, vomiting or diarrhea. No fever or chills reported. - Objective Vital Signs & Weight: Vital Signs (12 hours) Temp Pulse Resp BP Pulse Ox 10/06/20 08:00 98.0 F 75 20 105/71 94 L Weight Admit Weight 217 lb 8 oz Weight 217 lb 8 oz I&O: 10/05/20 10/06/20 10/07/20 06:59 06:59 06:59 Intake Total 720 360 Balance 720 360 Result Diagrams: 10/06/20 06:40 10/06/20 06:40 Additional Labs: Abnormal Lab Results - Last 48 hrs 10/05/20 06:10: Chloride 109 H, Calcium 7.5 L 10/05/20 06:10: MCHC 31.5 L, MPV 6.9 L, Neutrophils % (Manual) 16 L, Lymphocytes % (Manual) 66 H 10/06/20 06:40: MPV 7.1 L 10/06/20 06:40: Chloride 110 H, BUN 7 L, Total Bilirubin Less than 0.2 L, C- Reactive Protein 3.81 H, Albumin 3.2 L, Globulin 3.8 H, Albumin/Globulin Ratio 0.8 L 10/06/20 06:40: D-Dimer 1.16 H Microbiology - Entire Visit 10/04/20 14:54 Venous blood - Left Arm Blood Culture - Preliminary NO GROWTH AT 48 HOURS 10/04/20 14:54 Venous blood - Right Arm Blood Culture - Preliminary Coagulase Neg Staphylococcus Laboratory Tests 10/05/20 13:20 SARS-CoV-2 IgG Ab Index 0.29 Radiology Reviewed by me: Yes (Chest x-raypneumonia) Hospitalist ROS - Review of Systems Constitutional: reports: weakness, malaise. denies: fever, chills, sweats, other Gastrointestinal: denies: nausea, vomiting, abdominal pain, diarrhea, constipation, melena, hematochezia, other - Medication Medications: Active Medications Generic Name Dose Route Start Last Admin Trade Name Freq PRN Reason Stop Dose Admin Acetaminophen 650 mg 10/04/20 16:50 10/05/20 06:37 Acetaminophen 325 Mg Tab PO 650 mg Q4H PRN Administration Headache/Fever/Mild Pain (1-3) Acetaminophen/Aspirin/Caffeine 1 tab 10/05/20 09:19 10/05/20 21:36 Aspirin/Apap/Caffeine Tab (Excedrin Migraine) PO 1 tab Q6H PRN Administration Headache Acetaminophen/Codeine Phosphate 1 tab 10/05/20 09:15 10/05/20 09:55 Acetaminophen/Codeine 30-300mg Tablet PO 1 tab Q4H PRN Administration Moderate Pain (4-6) Albuterol Sulfate 2 puff 10/05/20 10:30 10/06/20 18:08 Albuterol 200 Puff (6.7gm Inhaler) INH 2 puff [id number] RAMESH Administration Dexamethasone 6 mg 10/05/20 09:00 10/06/20 09:07 Dexamethasone 4 Mg/Ml Vial SLOW IVP 6 mg DAILY RAMESH Administration Enoxaparin Sodium 40 mg 10/05/20 09:00 10/06/20 09:07 Enoxaparin Sodium 40 Mg/0.4 Ml Syringe SC 40 mg 0900 RAMESH Administration Remdesivir 100 mg/ Sodium 250 mls @ 250 mls/hr 10/06/20 14:00 10/06/20 13:41 Chloride IV 10/09/20 14:59 250 mls 1400 RAMESH Administration Ondansetron HCl 4 mg 10/04/20 16:50 10/06/20 02:28 Ondansetron Pf 4 Mg/2 Ml Vial IVP 4 mg Q6H PRN Administration Nausea/Vomiting Pantoprazole Sodium 40 mg 10/05/20 21:00 10/05/20 21:36 Pantoprazole 40 Mg Tab PO 40 mg HS RAMESH Administration Sodium Chloride 10 ml 10/04/20 21:00 10/06/20 09:08 Flush - Normal Saline 10 Ml Syringe IVF 10 ml Q12HR RAMESH Administration - Exam General Appearance: ill appearing Respiratory: normal chest expansion Psychiatric: normal affect, A&O x 3 Hosp A/P - Plan DVT proph w/lovenox, DVT proph w/SCDs Acute hypoxic respiratory failure due to COVID-19 pneumoniaPOA AKIPOA Hypertension Obesity with a BMI 38.5 Hyponatremia Hypokalemia Hypomagnesemia GERD Plan: Continue remdesivir with dexamethasone and bronchodilators. Infectious disease input appreciated. Replace electrolytes. Continue PPIs. Recheck labs in a.m. Monitor inflammatory markers. Case discussed with infectious disease
[2020-10-07] MEDS: Albuterol 200 PUFF (6.7GM INHALER) INH SCH ×6 (01:51→22:58)
[2020-10-07 06:31] LABS: #Lymphocytes 2.8 thou/uL (1.20-3.40); #Monocytes 0.4 thou/uL (0.11-0.59); #Neutrophils 2.9 thou/uL (1.40-6.50); %Basophils 0.6 % (0.0-1.0); %Lymphocytes 45.7 % (21.0-51.0); %Monocytes 5.9 % (0.0-10.0); %Neutrophils 47.8 % (42.0-75.0); Hemoglobin 12.3 g/dL (12.0-16.0); Mean Corpuscular HGB CONC 33.2 g/dL (32.0-36.0); Mean Corpuscular Hemoglobin 28.7 pg (27.0-31.0); Mean Corpuscular Volume 86.4 fL (78.0-98.0); Mean Platelet Volume 6.9 fL (7.4-10.4); Platelet Count 260 thou/uL (130-400)
[2020-10-07 06:59] LABS: ALT (SGPT) 9 U/L (8-55); AST (SGOT) 26 U/L (5-34); Albumin 3.2 g/dL (3.5-5.0); Alkaline Phosphatase 56 U/L (40-110); Anion Gap 14 mmol/L (10-20); BUN (Urea Nitrogen) 12 mg/dL (9.8-20.1); Bilirubin, Total 0.2 mg/dL (0.2-1.2); Calc. Creatinine Clearance 130 mL/min (70-130); Calcium 8.4 mg/dL (7.8-10.44); Carbon Dioxide 24 mmol/L (22-29); Chloride 107 mmol/L (98-107); Globulin 3.9 g/dL (2.4-3.5); Glucose 108 mg/dL (70-105); Potassium 3.7 mmol/L (3.5-5.1); Protein, Total 7.1 g/dL (6.0-8.3); Sodium 141 mmol/L (136-145)
[2020-10-07] MEDS: Dexamethasone 4 mg/ml Vial SLOW IVP SCH (08:31)
[2020-10-07] MEDS: Enoxaparin Sodium 40 MG/0.4 ML SYRINGE SC SCH (08:31)
[2020-10-07] MEDS: REMDESIVIR (EUA) 100 MG in Sodium Chloride 0.9% 250 ML 230 ML IV SCH (14:21)
[2020-10-07] MEDS: Acetaminophen 325 MG TAB PO PRN (21:45)
[2020-10-07] MEDS: Guaifenesin DM 100-10/5 ML UDCUP PO PRN (22:05)
[2020-10-08] MEDS: Albuterol 200 PUFF (6.7GM INHALER) INH SCH ×5 (02:25→17:34)
[2020-10-08 06:25] LABS: Hemoglobin 12.5 g/dL (12.0-16.0); Mean Corpuscular HGB CONC 32.9 g/dL (32.0-36.0); Mean Corpuscular Hemoglobin 28.4 pg (27.0-31.0); Mean Corpuscular Volume 86.3 fL (78.0-98.0); Mean Platelet Volume 7.2 fL (7.4-10.4); Platelet Count 256 thou/uL (130-400); RBC Distribution Width 13.1 % (11.5-14.5); White Blood Cell (WBC) Count 7.6 thou/uL (4.8-10.8)
[2020-10-08 06:35] LABS: ALT (SGPT) 13 U/L (8-55); AST (SGOT) 28 U/L (5-34); Albumin 3.2 g/dL (3.5-5.0); Alkaline Phosphatase 53 U/L (40-110); Anion Gap 16 mmol/L (10-20); BUN (Urea Nitrogen) 14 mg/dL (9.8-20.1); Bilirubin, Total 0.3 mg/dL (0.2-1.2); CRP (Inflammatory) 0.96 mg/dL (= or < 0.5); Calc. Creatinine Clearance 128 mL/min (70-130); Calcium 8.3 mg/dL (7.8-10.44); Carbon Dioxide 24 mmol/L (22-29); Chloride 106 mmol/L (98-107); Globulin 3.9 g/dL (2.4-3.5); Glucose 98 mg/dL (70-105); Potassium 3.6 mmol/L (3.5-5.1); Protein, Total 7.1 g/dL (6.0-8.3); Sodium 142 mmol/L (136-145)
[2020-10-08] MEDS: Dexamethasone 4 mg/ml Vial SLOW IVP SCH (07:47)
[2020-10-08] MEDS: Enoxaparin Sodium 40 MG/0.4 ML SYRINGE SC SCH (07:47)
[2020-10-08] MEDS: Ondansetron PF 4 MG/2 ML Vial IVP PRN (08:04)
[2020-10-08] MEDS: Acetaminophen 325 MG TAB PO PRN (08:05)
[2020-10-08 08:18] LABS: Lymphocytes 39 % (21-51); MDiff Complete? YES; Monocytes 4 % (0-10); Neutrophil 40 % (42-75); Platelet Morphology Comment Appears Adequate; RBC Morphology Normal; Reactive Lymphocytes 17 % (0-10)
[2020-10-08] MEDS: Guaifenesin DM 100-10/5 ML UDCUP PO PRN (09:29)
--- NOTE | 2020-10-08 10:40 | PDOC.HOSPP ---
- Subjective Encounter Date: 10/07/20 Encounter Time: 14:00 Subjective: Patient seen and examined for respiratory failure due to COVID-19 pneumonia. Short of breath on exertion. Denies any new complaints. - Objective Vital Signs & Weight: Weight Admit Weight 217 lb 8 oz Weight 217 lb 8 oz I&O: 10/07/20 10/08/20 10/09/20 06:59 06:59 06:59 Intake Total 360 Balance 360 Result Diagrams: 10/08/20 05:53 10/08/20 05:53 Additional Labs: Abnormal Lab Results - Last 48 hrs 10/07/20 06:17: MPV 6.9 L 10/07/20 06:17: Albumin 3.2 L, Globulin 3.9 H, Albumin/Globulin Ratio 0.8 L Microbiology - Entire Visit 10/04/20 14:54 Venous blood - Right Arm Blood Culture - Final Coagulase Neg Staphylococcus Coagulase Neg Staphylococcus#2 10/04/20 14:54 Venous blood - Left Arm Blood Culture - Preliminary NO GROWTH AT 48 HOURS Radiology Reviewed by me: Yes (Chest x-raypneumonia) Hospitalist ROS - Review of Systems Gastrointestinal: denies: nausea, vomiting, abdominal pain, diarrhea, co nstipation, melena, hematochezia, other Genitourinary: denies: dysuria, frequency, incontinence, hematuria, retention, other - Medication Medications: Active Medications Generic Name Dose Route Start Last Admin Trade Name Freq PRN Reason Stop Dose Admin Acetaminophen 650 mg 10/04/20 16:50 10/08/20 08:05 Acetaminophen 325 Mg Tab PO 650 mg Q4H PRN Administration Headache/Fever/Mild Pain (1-3) Acetaminophen/Aspirin/Caffeine 1 tab 10/05/20 09:19 10/05/20 21:36 Aspirin/Apap/Caffeine Tab (Excedrin Migraine) PO 1 tab Q6H PRN Administration Headache Acetaminophen/Codeine Phosphate 1 tab 10/05/20 09:15 10/05/20 09:55 Acetaminophen/Codeine 30-300mg Tablet PO 1 tab Q4H PRN Administration Moderate Pain (4-6) Albuterol Sulfate 2 puff 10/05/20 10:30 10/08/20 09:29 Albuterol 200 Puff (6.7gm Inhaler) INH 2 puff [id number] RAMESH Administration Dexamethasone 6 mg 10/05/20 09:00 10/08/20 07:47 Dexamethasone 4 Mg/Ml Vial SLOW IVP 6 mg DAILY RAMESH Administration Enoxaparin Sodium 40 mg 10/05/20 09:00 10/08/20 07:47 Enoxaparin Sodium 40 Mg/0.4 Ml Syringe SC 40 mg 0900 RAMESH Administration Guaifenesin/Dextromethorphan 15 ml 10/07/20 21:51 10/08/20 09:29 Guaifenesin Dm 100-10/5 Ml Udcup PO 15 ml Q4H PRN Administration Cough Remdesivir 100 mg/ Sodium 250 mls @ 250 mls/hr 10/06/20 14:00 10/07/20 14:21 Chloride IV 10/09/20 14:59 250 mls 1400 RAMESH Administration Ondansetron HCl 4 mg 10/04/20 16:50 10/08/20 08:04 Ondansetron Pf 4 Mg/2 Ml Vial IVP 4 mg Q6H PRN Administration Nausea/Vomiting Pantoprazole Sodium 40 mg 10/05/20 21:00 10/07/20 19:53 Pantoprazole 40 Mg Tab PO 40 mg HS RAMESH Administration Senna/Docusate Sodium 2 tab 10/05/20 09:16 10/08/20 08:04 Senokot S 8.6-50 Mg Tab PO 2 tab BIDPRN PRN Administration Constipation Sodium Chloride 10 ml 10/04/20 21:00 10/08/20 07:48 Flush - Normal Saline 10 Ml Syringe IVF 10 ml Q12HR RAMESH Administration - Exam General Appearance: awake alert Neck: supple, no JVD Heart: RRR, no gallops Respiratory: no wheezes, rales, rhonchi Gastrointestinal: non-tender, non-distended, no guarding, no rigidity Extremities: no cyanosis Neurological: no new deficit Psychiatric: normal affect, A&O x 3 Hosp A/P - Plan DVT proph w/lovenox Acute hypoxic respiratory failure due to COVID-19 pneumonia AICHA Hypertension Obesity with a BMI 38.5 Hyponatremia Hypokalemia Hypomagnesemia GERD Plan: We will continue 6 mg dexamethasone along with remdesivir per protocol. Continue DVT and GI prophylaxis. Continue bronchodilators. Continue isolation. Patient was advised to ambulate. Recheck labs including LFTs in a.m. Continue other medications as above
[2020-10-08 10:52] VITALS: BP 106/74; TEMP 98.1
--- NOTE | 2020-10-08 12:24 | PQF ---
CLINICAL DOCUMENTATION CLARIFICATION FORM: Dear Dr. YENIFER LUCERO Date: 10-08-20 Please exercise your independent, professional judgment in responding to the clarification form. Clinical indicators are provided on the bottom of this form for your review. Please check appropriate box(es) to clarify if the following diagnosis has been ruled in our ruled out: SEPSIS [ x ] Ruled in diagnosis [ ] Continue to treat [ x ] Resolved [ ] Ruled out diagnosis [ ] Other diagnosis [ ] Unable to determine In addition, please specify: Present on Admission (POA): [x] Yes [ ] No [ ] Unable to determine For continuity of documentation, please document condition throughout progress notes and discharge summary. Thank You. To be completed by CDI/Coding staff for physician review: CLINICAL INDICATORS - SIGNS / SYMPTOMS / LABS / RESULTS AND LOCATION IN MR: ER NOTES 10-04-20: ON ARRIVAL PATIENTS VITAL SIGNS ARE CONSISTENT WITH SEPSIS WITH HYPOTENSION TACHYCARDIA FEVER AND BORDERLINE OXYGEN SATS WITH TACHYPNEA. ER DX 10-04-20: PNEUMONIA, SEPSIS H&P: LLL PNEUMONIA, AICHA, HTN BP: ER: 10-04-20: 85/60, 91/69 PULSE: ER: 125, 112, 106 TEMP: 100.2, 99.0 RISK FACTORS / RESULTS AND LOCATION IN MR: ER DX: PNEUMONIA, SEPSIS PN DR. LUCERO 10-08-20: PATIENT EVALUATED FOR RESP FAILURE DUE TO COVID 19 PNEUMONIA TREATMENTS / RESULTS AND LOCATION IN MR: ER: AZITHROMYCIN IV, CEFTRIAXONE IV, NS IVF CDS Signature: Arpita Gil Phone #: [phone] Date: 10-08-20 This is a permanent part of the Medical Record [facility]
--- NOTE | 2020-10-08 14:29 | PRG ---
DATE OF SERVICE: 10/08/2020 SUBJECTIVE: Doing much better. She is on room air and saturating 96 to 97, I made her exercise a little bit and she did not desaturate at all. No more coughing. No abdominal pain. Able to eat. Sense of smell has returned. OBJECTIVE: VITAL SIGNS: Normal temperature and she is saturating again 97 on room air and after a brief exercise, she keeps the same saturation. LUNGS: Clear. HEART: S1 and S2. Regular rate. ABDOMEN: Soft, not distended. ASSESSMENT AND DISCUSSION: Hypertension, obesity, and moderate COVID pneumonia, she was vaccinated, but she has probably acquired the virus at more or less at the same time as the vaccine and she did not have protective IgG antibodies yet, but nonetheless she is doing very well at this time. We can discontinue the remdesivir early and discharge her on to finish off her Decadron at home. Job ID: [id number]
[2020-10-08] MEDS: REMDESIVIR (EUA) 100 MG in Sodium Chloride 0.9% 250 ML 230 ML IV SCH (14:36)
--- NOTE | 2020-10-08 17:16 | PDOC.DS.DS ---
Provider - Provider Date of Admission: 10/04/20 15:42 Date of Discharge: 10/08/20 Admitting Provider: Lang Garcia MD Consultations: Infectious Disease Primary Care Physician: Unknown Course - Hospital Course Hospital Course: Patient is a 55-year-old female with hypertension and recent COVID-19 vaccination presented to the hospital with generalized headache along with shortness of breath and subjective fever. Her work-up was consistent with COVID-19 pneumonia with hypoxic respiratory failure. She was started on Decadron along with remdesivir. She was also placed on DVT and GI prophylaxis. Patient was evaluated by infectious disease Dr. Leach who agreed with above plan of care. She has been cleared by infectious disease for discharge. She was extensively counseled on COVID-19 infection. She appears stable for discharge. Final diagnosis: Acute hypoxic respiratory failure due to COVID-19 pneumonia AICHA Hypertension Obesity with a BMI 38.5 Hyponatremia Hypokalemia Hypomagnesemia GERD Resuscitation Status: 10/05/20 09:16 Resuscitation Status Routine Resuscitation Status: FULL: Full Resuscitation - Labs Lab Results: 10/08/20 05:53 10/08/20 05:53 Abnormal Lab Results - Last 48 hrs 10/07/20 06:17: MPV 6.9 L 10/07/20 06:17: Albumin 3.2 L, Globulin 3.9 H, Albumin/Globulin Ratio 0.8 L 10/08/20 05:53: MPV 7.2 L, Neutrophils % (Manual) 40 L, Reactive Lymphs % 17 H 10/08/20 05:53: C-Reactive Protein 0.96 H, Albumin 3.2 L, Globulin 3.9 H, Albumin/Globulin Ratio 0.8 L 10/08/20 05:53: D-Dimer 0.78 H Microbiology - Entire Visit 10/04/20 14:54 Venous blood - Right Arm Blood Culture - Final Coagulase Neg Staphylococcus Coagulase Neg Staphylococcus#2 10/04/20 14:54 Venous blood - Left Arm Blood Culture - Preliminary NO GROWTH AT 48 HOURS - Physical Exam Vitals: Vital Signs (12 hours) Temp Pulse Resp BP Pulse Ox 10/08/20 08:00 98.1 F 76 16 106/74 96 Weight Admit Weight 217 lb 8 oz Weight 217 lb 8 oz Physical Exam: The patient was evaluated on the day of discharge. Denies any new complaints. Shortness of breath is improving. She remains on room air over the last 48 hours. Plan - Discharge Medications Prescriptions: Dexamethasone 6 mg PO DAILY #7 tablet Albuterol Sulfate HFA (OR) [Proventil Hfa (or)] 2 puff INH Q4H #1 inh Zinc Sulfate 220 mg PO DAILY #30 cap Home Medications: Medication Instructions Recorded Confirmed Type Lisdexamfetamine Dimesylate 60 mg PO QAM 07/15/17 10/05/20 History [Vyvanse] Pantoprazole [Protonix] 40 mg PO QAM 08/08/17 10/05/20 History Lisinopril/Hydrochlorothiazide 20 mg DAILY 10/05/20 10/05/20 History [Lisinopril-Hctz 20-25 mg Tab] Albuterol Sulfate HFA (OR) 2 puff INH Q4H #1 inh 10/08/20 Rx [Proventil Hfa (or)] Dexamethasone 6 mg PO DAILY #7 tablet 10/08/20 Rx Zinc Sulfate 220 mg PO DAILY #30 cap 10/08/20 Rx Allergies: prochlorperazine [From Compazine] Allergy (Verified 02/05/20 20:24) - Discharge Instructions Discharge Instructions:: YOUR PRESCRIPTIONS WERE SENT TO: [facility] [address], [place] [address] - Follow up Plan Referrals: Zach Degroot MD [Active] - 10 Days Jenise Snell MD [Active] - 7 Days Amandeep Leach MD [Active] - 10 Days Disposition: HOME Quality - Care Measures CORE MEASURES:: N/A
--- NOTE | 2020-10-09 10:08 | EKG ---
Test Reason : Blood Pressure : / mmHG Vent. Rate : 110 BPM Atrial Rate : 110 BPM P-R Int : 138 ms QRS Dur : 086 ms QT Int : 320 ms P-R-T Axes : 026 033 005 degrees QTc Int : 433 ms Sinus tachycardia Nonspecific ST abnormality Left atrial enlargement Abnormal ECG Confirmed by RITESH ZAMORA, GRAYSON Rivas ([id number]), sound editor DASHAWN MORENO ([id number]) on 10/09/2020 10:08:15 AM Referred By: Confirmed By:GRAYSON AWAD MD
== END 2020-10-08 18:02 | disposition home or self-care (01) | DRG 871 ==
LOC: ERS 14:45 → EEVIPCON 14:45 → T4-B 15:42
PROVIDERS: ADMIT Internal Medicine; ATTEND Internal Medicine
PROC: 8E0ZXY6 Isolation (ICD-10-PCS; principal; 2020-10-04)
PROC: XW033E5 Introduction of Remdesivir Anti-infective into Peripheral Vein, Percutaneous Approach, New Technology Group 5 (ICD-10-PCS; 2020-10-06)
DX: A41.89 Other specified sepsis (principal); U07.1 COVID-19; J12.82 Pneumonia due to coronavirus disease 2019; J96.01 Acute respiratory failure with hypoxia; N17.9 Acute kidney failure, unspecified; E87.1 Hypo-osmolality and hyponatremia; E66.9 Obesity, unspecified; E87.6 Hypokalemia; E83.42 Hypomagnesemia; K21.9 Gastro-esophageal reflux disease without esophagitis; I10 Essential (primary) hypertension; Z98.51 Tubal ligation status; Z68.35 Body mass index [BMI] 35.0-35.9, adult; Z88.8 Allergy status to other drugs, medicaments and biological substances; Z79.899 Other long term (current) drug therapy; Z90.49 Acquired absence of other specified parts of digestive tract; Z90.710 Acquired absence of both cervix and uterus
CPT/HCPCS: 0240U; 36415; 70450; 71045; 80048; 80053; 81003; 81015; 82728; 83605; 83735; 84100; 85025; 85379; 85610; 85652; 85730; 86140; 86769; 87040; 87149; 93005; 94760; 96365; 96366; 96367; 96374; J0456; J0696; J1100; J1650; J1885; J2405; J3475; J7050

== ENCOUNTER 2021-10-27 01:11 | Observation (INO) | payer BC, OTHER, SELFPAY ==
[2021-10-27] MEDS ORDERED: Aspirin Chewable 81 MG TAB ONE (01:13)
[2021-10-27 01:42] LABS: #Basophils 0.1 thou/uL (0.0-0.2); #Eosinphils 0.1 thou/uL (0.0-0.7); #Monocytes 0.6 thou/uL (0.11-0.59); #Neutrophils 5.7 thou/uL (1.40-6.50); %Basophils 0.7 % (0.0-1.0); %Lymphocytes 43.5 % (21.0-51.0); %Monocytes 4.8 % (0.0-10.0); Hemoglobin 12.5 g/dL (12.0-16.0); Mean Corpuscular HGB CONC 33.3 g/dL (32.0-36.0); Mean Corpuscular Hemoglobin 28.9 pg (27.0-31.0); Mean Corpuscular Volume 86.6 fL (78.0-98.0); Mean Platelet Volume 6.4 fL (7.4-10.4); Platelet Count 322 thou/uL (130-400); RBC Distribution Width 13.5 % (11.5-14.5); Red Blood Cell (RBC) Count 4.32 mill/uL (4.20-5.40); White Blood Cell (WBC) Count 11.4 thou/uL (4.8-10.8)
[2021-10-27] MEDS ORDERED: Nitroglycerin 2% Ointment 1 INCH/1 GM Packet ONE (01:42)
[2021-10-27 02:02] LABS: ALT (SGPT) 10 U/L (8-55); AST (SGOT) 24 U/L (5-34); Albumin 3.7 g/dL (3.5-5.0); Alkaline Phosphatase 75 U/L (40-110); Anion Gap 15 mmol/L (10-20); BUN (Urea Nitrogen) 14 mg/dL (9.8-20.1); Bilirubin, Total 0.4 mg/dL (0.2-1.2); Calc. Creatinine Clearance 0 mL/min (70-130); Calcium 9.3 mg/dL (7.8-10.44); Carbon Dioxide 26 mmol/L (22-29); Chloride 106 mmol/L (98-107); Globulin 4.3 g/dL (2.4-3.5); Glucose 86 mg/dL (70-105); Potassium 3.9 mmol/L (3.5-5.1); Sodium 143 mmol/L (136-145)
[2021-10-27] MEDS ORDERED: Morphine 4 MG/ML VIAL ONE (02:50)
[2021-10-27] MEDS ORDERED: Ondansetron PF 4 MG/2 ML Vial ONE (02:50)
[2021-10-27 04:19] VITALS: BMI 40.0
[2021-10-27] MEDS ORDERED: Ondansetron PF 4 MG/2 ML Vial IVP PRN (04:40)
[2021-10-27] MEDS ORDERED: Ondansetron ODT 4 MG TAB PO PRN (04:40)
[2021-10-27] MEDS ORDERED: Acetaminophen 650 MG Suppository PR PRN (04:40)
[2021-10-27] MEDS ORDERED: Nitroglycerin 0.4 MG TAB (25 Tab Bottle) SL PRN (04:44)
[2021-10-27] MEDS ORDERED: Morphine 4 MG/ML VIAL SLOW IVP PRN (04:51)
[2021-10-27] MEDS: Acetaminophen 325 MG TAB PO PRN ×2 (05:15→11:34)
[2021-10-27] MEDS ORDERED: traMADol HCl 50 MG TAB PO PRN (05:27)
[2021-10-27 05:53] LABS: Troponin I Less than 0.010 ng/mL (< 0.028)
[2021-10-27 07:53] LABS: Troponin I Less than 0.010 ng/mL (< 0.028)
[2021-10-27] MEDS ORDERED: Aspirin Chewable 81 MG TAB PO SCH (09:00)
[2021-10-27] MEDS ORDERED: Enoxaparin Sodium 40 MG/0.4 ML SYRINGE SC SCH (09:00)
[2021-10-27] MEDS ORDERED: ADENOSINE 60 MG/20 ML VIAL ONE (11:30)
[2021-10-27] MEDS ORDERED: Iopamidol 370 76% 100 ML VIAL ONE (11:43)
[2021-10-27 12:29] LABS: SARS-CoV-2 PCR by NAA Not Detected (NotDetected)
[2021-10-27 16:35] VITALS: BP 139/80; TEMP 98
[2021-10-30] MEDS ORDERED: FLU VACC QS2021-22(6MOS UP)/PF 60 MCG/0.5 ML SYRINGE IM ONE (09:00)
== END 2021-10-27 17:03 | disposition home or self-care (01) ==
LOC: ERS 01:11 → 2NO 03:17
PROVIDERS: ADMIT Student in an Organized Health Care Education/Training Program; ATTEND Student in an Organized Health Care Education/Training Program
DX: R07.89 Other chest pain (principal); D72.829 Elevated white blood cell count, unspecified; R60.0 Localized edema; I11.9 Hypertensive heart disease without heart failure; I08.8 Other rheumatic multiple valve diseases; Z86.16 Personal history of COVID-19; Z88.8 Allergy status to other drugs, medicaments and biological substances; Z98.51 Tubal ligation status; Z20.822 Contact with and (suspected) exposure to COVID-19
CPT/HCPCS: 36415; 71045; 71260; 78452; 80053; 83880; 84484; 85025; 93005; 93017; 93306; 96372; 96374; 96375; 96376; A9500; G0378; J0153; J1650; J2270; J2405; Q9967; U0003; U0005

== ENCOUNTER 2022-07-09 18:42 | Observation (INO) | payer BC ==
[2022-07-09 19:08] LABS: #Eosinphils 0.1 thou/uL (0.0-0.7); #Lymphocytes 4.2 thou/uL (1.20-3.40); #Monocytes 0.7 thou/uL (0.11-0.59); #Neutrophils 5.5 thou/uL (1.40-6.50); %Basophils 0.5 % (0.0-1.0); %Eosinophils 1.1 % (0.0-10.0); %Monocytes 6.7 % (0.0-10.0); %Neutrophils 51.8 % (42.0-75.0); Hemoglobin 12.1 g/dL (12.0-16.0); Mean Corpuscular HGB CONC 33.2 g/dL (32.0-36.0); Mean Corpuscular Hemoglobin 29.4 pg (27.0-31.0); Mean Corpuscular Volume 88.4 fL (78.0-98.0); Mean Platelet Volume 6.7 fL (7.4-10.4); Platelet Count 300 thou/uL (130-400); RBC Distribution Width 13.3 % (11.5-14.5); Red Blood Cell (RBC) Count 4.13 mill/uL (4.20-5.40); White Blood Cell (WBC) Count 10.6 thou/uL (4.8-10.8)
[2022-07-09] MEDS ORDERED: Fentanyl 100 MCG/2 ML VIAL ONE (19:11)
[2022-07-09 19:36] LABS: ALT (SGPT) 9 U/L (8-55); AST (SGOT) 20 U/L (5-34); Albumin 3.7 g/dL (3.5-5.0); Alkaline Phosphatase 75 U/L (40-110); BUN (Urea Nitrogen) 14 mg/dL (9.8-20.1); Bilirubin, Total 0.4 mg/dL (0.2-1.2); CK (CPK) 525 U/L (29-168); Calc. Creatinine Clearance 0 mL/min (70-130); Calcium 8.9 mg/dL (7.8-10.44); Carbon Dioxide 25 mmol/L (22-29); Chloride 106 mmol/L (98-107); Estimated GFR 55; Globulin 3.6 g/dL (2.4-3.5); Glucose 98 mg/dL (70-105); Potassium 3.8 mmol/L (3.5-5.1); Protein, Total 7.3 g/dL (6.0-8.3); Sodium 141 mmol/L (136-145)
[2022-07-09 20:00] LABS: Anion Gap 15 mmol/L (10-20)
[2022-07-09] MEDS ORDERED: Ondansetron PF 4 MG/2 ML Vial IVP PRN (20:31)
[2022-07-09 21:32] VITALS: BMI 41.0
[2022-07-09] MEDS: Sodium Chloride 0.9% 1,000 ML IV SCH (21:35)
[2022-07-09] MEDS: Acetaminophen 325 MG TAB PO PRN (21:44)
[2022-07-09 23:13] LABS: Troponin I Less than 0.010 ng/mL (< 0.028)
[2022-07-10 01:51] LABS: Troponin I Less than 0.010 ng/mL (< 0.028)
[2022-07-10] MEDS: Acetaminophen 325 MG TAB PO PRN (03:06)
[2022-07-10 05:09] LABS: #Basophils 0.1 thou/uL (0.0-0.2); #Eosinphils 0.1 thou/uL (0.0-0.7); #Lymphocytes 4.2 thou/uL (1.20-3.40); #Monocytes 0.4 thou/uL (0.11-0.59); #Neutrophils 4.3 thou/uL (1.40-6.50); %Basophils 0.8 % (0.0-1.0); %Eosinophils 1.2 % (0.0-10.0); %Lymphocytes 45.9 % (21.0-51.0); %Monocytes 4.7 % (0.0-10.0); %Neutrophils 47.4 % (42.0-75.0); Hemoglobin 11.4 g/dL (12.0-16.0); Mean Corpuscular HGB CONC 31.7 g/dL (32.0-36.0); Mean Corpuscular Hemoglobin 28.1 pg (27.0-31.0); Mean Corpuscular Volume 88.6 fL (78.0-98.0); Mean Platelet Volume 6.7 fL (7.4-10.4); Platelet Count 290 thou/uL (130-400); RBC Distribution Width 13.4 % (11.5-14.5); Red Blood Cell (RBC) Count 4.07 mill/uL (4.20-5.40)
[2022-07-10 05:12] LABS: Anion Gap 10 mmol/L (10-20); BUN (Urea Nitrogen) 10 mg/dL (9.8-20.1); CK (CPK) 519 U/L (29-168); Calc. Creatinine Clearance 121 mL/min (70-130); Calcium 8.5 mg/dL (7.8-10.44); Carbon Dioxide 26 mmol/L (22-29); Chloride 108 mmol/L (98-107); Estimated GFR 78; Glucose 91 mg/dL (70-105); Potassium 3.9 mmol/L (3.5-5.1); Sodium 140 mmol/L (136-145)
[2022-07-10] MEDS ORDERED: ALPRAZolam 1 MG TAB PO SCH (12:00)
[2022-07-10] MEDS: Sodium Chloride 0.9% 1,000 ML IV SCH (21:44)
[2022-07-11] MEDS: Acetaminophen 325 MG TAB PO PRN (03:52)
[2022-07-11] MEDS ORDERED: Ibuprofen 200 MG TAB PO SCH (10:15)
[2022-07-11 11:27] VITALS: BP 134/85; TEMP 97.6
== END 2022-07-11 12:13 | disposition home or self-care (01) ==
LOC: ERS 18:42 → 2SW 20:31
PROVIDERS: ADMIT Internal Medicine; ATTEND Internal Medicine
DX: R55 Syncope and collapse (principal); N17.9 Acute kidney failure, unspecified; I10 Essential (primary) hypertension; I08.8 Other rheumatic multiple valve diseases; I25.2 Old myocardial infarction; E66.9 Obesity, unspecified; Z68.41 Body mass index [BMI] 40.0-44.9, adult; Z86.16 Personal history of COVID-19; Z88.8 Allergy status to other drugs, medicaments and biological substances; Z20.822 Contact with and (suspected) exposure to COVID-19
CPT/HCPCS: 36415; 70450; 70551; 71045; 80048; 80053; 82550; 84484; 85025; 90471; 90732; 93005; 93880; 96361; 96374; 96375; G0009; G0378; J2405; J3010; J7050; U0003; U0005

== ENCOUNTER 2024-04-04 07:45 | Outpatient (CLI) | payer BC | END 2024-04-04 07:46 | disposition home or self-care (01) | LOC: BICMAMMO 07:45 | PROVIDERS: ATTEND Family Medicine | DX: Z12.31 Encounter for screening mammogram for malignant neoplasm of breast (principal) | CPT/HCPCS: 77063; 77067 ==

== ENCOUNTER 2025-07-09 07:16 | Outpatient (CLI) | payer BC | END 2025-07-09 07:17 | disposition home or self-care (01) | LOC: CT 07:16 | PROVIDERS: ATTEND Urology | DX: N28.1 Cyst of kidney, acquired (principal); K76.89 Other specified diseases of liver | CPT/HCPCS: 74178 ==